=== PATIENT | female | born 1995 | race Caucasian/White ===

== ENCOUNTER 2016-10-24 19:10 | Emergency (ER) | payer BC ==
--- NOTE | 2016-10-24 20:52 | EDPHY ---
H & P Time Seen by Provider: 10/24/16 19:29 HPI/ROS: HPI Impulse sensation to the head. 21-year-old female by private vehicle with her friend. This patient was seen in the emergency department by myself last June for the same complaint. At that time she complained of a impulse like sensation to the left parietal aspect of her skull and head. There is no history of trauma. During her last visit for this complaint she had an unremarkable neuro exam. I did not obtain advanced imaging at that time. She was referred to Neurology. She saw Dr. Camilo Bruno of the neurology service for this problem in June. He did not feel that it was anything that required further management. She reports that it went away for awhile she reports that a couple of weeks ago the sensation started coming back and over the last 2 days she has had it intermittently which is more than usual. She describes it as a sharp jolt to the left side of her head. She reports that it has been happening 2 to 3 times a day for the last 2-3 days. ROS: Constitutional: No fever, no chills. No weakness. Eyes: No discharge. No changes in vision. No photophobia. ENT: No sore throat. No nasal congestion or rhinorrhea. Respiratory: No cough. No shortness of breath. Cardiac: No chest pain, no palpitations. Gastrointestinal: No abdominal pain, no vomiting, no diarrhea. Genitourinary: No hematuria. No dysuria or increased frequency with urination. Musculoskeletal: No back pain. No neck pain. No myalgias or arthralgias. Skin: No rashes. Neurological: As above. No focal weakness or altered sensation. Past medical history: Anxiety. Depression. Social history: Here with her friend. [facility]. Physical Exam: General Appearance: Alert, no distress. This patient is responding to questions appropriately and in full sentences. This patient appears well- hydrated and well-nourished. Head: Normocephalic atraumatic. Eyes: Pupils equal and round no pallor or injection. No lid edema, erythema or injection. No photophobia. No nystagmus. ENT, Mouth: Mucous membranes are moist. The pharyngeal tissues are unremarkable. No edema or swelling. No asymmetry suggestive of abscess. No erythema or exudates. Respiratory: There are no retractions, lungs are clear to auscultation with good air movement bilaterally. Cardiovascular: Regular rate and rhythm. No murmur. Neurological: Motor sensory function is grossly intact. Cranial nerves are normal. Mentation is normal. Gait is normal. Skin: Warm and dry, no rashes. Musculoskeletal: Neck is supple and nontender. No suboccipital tenderness on palpation. No carotid artery bruits on auscultation bilaterally. No tenderness on palpation of the soft tissues of the lateral neck. Extremities are symmetrical. All joints range without pain or impingement. Psychiatric: No agitation. No depression. Database: EKG: Imaging: Procedures: Emergency department course: After my evaluation, I did discuss CT imaging. However I explained that I felt this would be likely unremarkable. I suggested follow up again with Dr. Bruno and consideration of an outpatient MRI. She wants to discuss this with her mother before making a decision. 9:40 p.m., patient re-evaluated. Her symptoms have resolved. She did discuss imaging with her mother. She is declining this at this time. She will follow up with Dr. Camilo Bruno her neurologist for re-evaluation and consideration of an outpatient MRI. I feel this is reasonable. Return to emergency department precautions were reviewed with her. All of her questions were answered. She was discharged from the emergency department in good condition with her friend. Differential Diagnosis: This patient's presentation is not consistent with subarachnoid hemorrhage, CVA , carotid artery dissection, vertebral artery dissection. The differential diagnosis on this patient includes but is not limited to anxiety reaction, complex migraine. This represents a partial list of diagnoses considered. These considerations are based on history, physical exam, past history, reassessment and diagnostic testing. Smoking Status: Never smoked Constitutional: Initial Vital Signs Temperature (C) 36.9 C 10/24/16 19:17 Heart Rate 103 H 10/24/16 19:17 Respiratory Rate 18 10/24/16 19:17 Blood Pressure 115/87 H 10/24/16 19:17 O2 Sat (%) 98 10/24/16 19:17 O2 Delivery Mode Room Air Allergies/Adverse Reactions: No Known Allergies Allergy (Verified 06/10/16 15:19) Home Medications: Medication Instructions Recorded Bcp 08/01/15 Venlafaxine 25MG (*) 06/10/16 Departure - Departure Disposition: Home, Routine, Self-Care Clinical Impression: Head pain Condition: Good Instructions: Lumbar Puncture (ED) Additional Instructions: Read and follow provided instructions. Follow-up with your neurologist, Dr. Camilo Bruno, in 1-2 days for re- evaluation. Return to the emergency department for worsening headache, confusion, vomiting, fever, neck pain or other serious concerns. Referrals: Camilo Bruno MD [Medical Doctor] - As per Instructions
[2016-10-24 21:54] VITALS: BP 127/87; PULSE 93; RESP 14; TEMP 97.7; O2SAT 96
== END 2016-10-24 21:54 | disposition home or self-care (01) ==
DX: R51 Headache (principal)

== ENCOUNTER → 2016-10-30 | Outpatient (CLI) | payer BC ==
--- NOTE | 2016-10-30 21:33 | MR ---
MRI of the Brain (Without Contrast) Indication: Headache Technique: Sagittal and axial T1, axial fast inversion-recovery, fast T2-weighted, and diffusion-akua ghted axial images were obtained, without contrast. Comparison: Noncontrast head CT dated July 31, 2014. Findings: The brain is normally developed. No intracranial hemorrhage, mass, or extraaxial fluid co llection. The ventricular system is normal caliber and midline. Diffusion-weighted imaging is art l, with no evidence of acute ischemia. The melchor and white matter have normal signal intensity. A fe w punctate hyperintense periventricular subcortical white matter foci are scattered throughout the fr ontal and parietal lobes on the FLAIR-weighted imaging. Normal flow void in the superior sagittal sinus, basilar artery, and bilateral internal carotid arter ies indicating patency. The pituitary gland, orbits, cervicooccipital junction are unremarkable. Pi tuitary gland is normal in size. Paranasal sinuses and mastoid air cells are clear. Impression: 1. Normally developed brain. No mass or intracranial hemorrhage. 2. Minimal scattered tiny white matter foci throughout the frontal and parietal lobes may be sequela from previous migraine, trauma, or infection.
== END ==
LOC: FIMAGING 18:53
PROVIDERS: ATTEND Psychiatry & Neurology Neurology
DX: R51 Headache (principal)